=== PATIENT | male | born 1975 ===

== ENCOUNTER 2020-12-29 13:37 | Outpatient (REF) | payer OTHER, SELFPAY ==
[2020-12-29 13:22] LABS: Calculated LDL 175 mg/dL (<100); Cholesterol 255 mg/dL (<200); HDL Cholesterol 54 mg/dL (40-60); Triglyceride 132 mg/dL (<150)
== END 2020-12-29 13:38 | disposition home or self-care (01) ==
LOC: NCHCN 13:37
PROVIDERS: PCP Nurse Practitioner Family; Visit Provider Nurse Practitioner Family
DX: Z00.00 Encounter for general adult medical examination without abnormal findings (principal); Z13.220 Encounter for screening for lipoid disorders
CPT/HCPCS: 80061

== ENCOUNTER 2025-01-27 16:50 | Outpatient (REF) | payer OTHER, SELFPAY ==
[2025-01-27 16:36] LABS: ALT 28 U/L (16-63); AST 19 U/L (15-37); Albumin 3.7 g/dL (3.4-5.0); Alkaline Phosphatase 58 U/L (46-116); Anion Gap 9.6 mmol/L (3-11); BUN 24 mg/dL (7-18); Bilirubin, Total 0.5 mg/dL (0.2-1.0); CO2 26.4 mmol/L (21.0-32.0); CREATININE 0.9 mg/dL (0.70-1.30); Calculated LDL 161 mg/dL (<100); Chloride 107 mmol/L (98-107); Cholesterol 275 mg/dL (<200); Estimated GFR 105.35 (mL/min/1.73m2); Glucose 105 mg/dL (74-106); HDL Cholesterol 51 mg/dL (>or=40); Potassium 4.2 mmol/L (3.5-5.1); Sodium 143 mmol/L (136-145); Total Protein 6.9 g/dL (6.4-8.2); Triglyceride 318 mg/dL (<150)
[2025-01-27 22:34] LABS: HIV-1/2 Ag & Ab Screen Negative (Negative)
[2025-01-27 22:42] LABS: Hepatitis C Ab w Rflx HCV PCR Negative (Negative)
[2025-01-28 18:45] LABS: Apolipoprotein A1 151 mg/dL (>=120)
== END 2025-01-27 16:51 | disposition home or self-care (01) ==
LOC: NCHCN 16:50
PROVIDERS: PCP Nurse Practitioner Family; Visit Provider Nurse Practitioner Family
DX: Z11.3 Encounter for screening for infections with a predominantly sexual mode of transmission (principal); Z00.00 Encounter for general adult medical examination without abnormal findings
CPT/HCPCS: 80053; 80061; 86803; 87389; 82172